=== PATIENT | male | born 1990 | race Caucasian/White ===

== ENCOUNTER 2019-03-24 08:04 | Day surgery (SDC) | payer OTHER ==
[~2019-03-24] VITALS: Ht 182.9 cm; Wt 97.5 kg
[2019-03-24] MEDS ORDERED: FLONASE ALLERG9.9 ML NAS (08:28)
--- NOTE | 2019-03-24 11:21 | NUR ---
03/24/19 [facility] Michelle Jones [facility]- PT ARRIVES TO PACU FROM ENDO ROOM ON 2 L VIA NC. VSS. PT LAYING IN BED WITH EYES CLOSED. EASILY AWAKENS TO VERBAL STIMULUS. PT ASKS QUESTIONS ABOUT SCOPE FINDINGS AND ANSWERS RN QUESTIONS APPRORIATELY. PT REPORTS SOME SORENESS IN RECTUM BUT TOLERABLE. DENIES NAUSEA. FALLS BACK ASLEEP EASILY.
--- NOTE | 2019-03-24 18:30 | OR ---
[facility] [address], [place] [address] Signed DATE OF OPERATION: 03/24/2019 SURGEON: Chula Mueller MD PREOPERATIVE DIAGNOSES: Lower abdominal pain, episodic rectal bleeding. POSTOPERATIVE DIAGNOSIS: Normal-appearing colon and ileum. PROCEDURE PERFORMED: Total colonoscopy to cecum with intubation of ileum and biopsies. ANESTHESIA: Intravenous sedation, fentanyl 100 mcg, Versed 6 mg. INDICATIONS: This 29-year-old white man is a patient of physician Abundio arevalo in [place], [place]. He has had worsening lower abdominal crampy type pain as well as associated episodic rectal bleeding. Hemoccult stool has been positive. He has had no weight loss, but has had diarrhea in addition to the abdominal pain. He has no family history of colon cancer or inflammatory bowel disease. He was admitted at this time to undergo colonoscopy to better characterize the problem. FINDINGS: The prep was excellent. Complete colonoscopy was undertaken to the cecum and intubation of the ileum was accomplished as well. Biopsies were taken throughout, though none of the areas look particularly worrisome for inflammation in any way. There were certainly no polyps or diverticular formation. I saw no fissure or significant hemorrhoidal disease today. DESCRIPTION OF PROCEDURE: The patient was brought to the endoscopy suite and placed in lateral decubitus position given intravenous sedation to the point of slurred speech and nystagmus. Digital rectal examination was normal. An Olympus video colonoscope was passed in the rectum and manipulated throughout the colon ultimately intubating the cecum. The ileocecal valve and appendiceal orifice were well visualized. With various maneuvers, ultimately the terminal ileum could be intubated. Atypical lymphoid appearance of the ileum was noted. Scope was passed at Electronically Signed By: CHULA MUELLER MD 03/24/19 1830 PATIENT NAME: MANISH HERNANDEZ OPERATIVE REPORT DATE OF : [birth year] REPORT #: [id number] PHYSICIAN: CHULA MUELLER MD PCP: EVELIN HARRIS PA-C REPORT IS CONFIDENTIAL AND NOT TO BE RELEASED WITHOUT AUTHORIZATION [facility] [address], [place] [address] Signed least 8 cm or so into the ileum. Biopsies were obtained there, though the mucosa looked normal. Scope was withdrawn. A biopsy was then taken of the cecum. Careful withdrawal of scope and examination throughout showed no sign of abnormality. Biopsies were taken in the sigmoid and rectum as well. Scope was removed and the patient was taken to recovery room in good condition. Of note, careful passage through the anal canal showed no evidence of fissure and no active hemorrhoidal disease. He was taken to recovery room in good condition. CONCLUDING DIAGNOSIS: He may well have problem of irritable bowel syndrome given his symptom constellation and lack of findings on colonoscopy. On the other hand, pathology report is pending and the possibility of microscopic colitis must be considered as well. For the time being, we will have him review and initiate a low FODMAP diet and we will see him back in 4 to 6 weeks and assess his pathology reports and progress. MD DEJON Palacio/SOLO /[id number] cc: THIAGO Crockett [facility] Copies: ~ Electronically Signed By: CHULA MUELLER MD 03/24/19 1830 PATIENT NAME: MANISH HERNANDEZ OPERATIVE REPORT DATE OF : [birth year] REPORT #: [id number] PHYSICIAN: CHULA MUELLER MD PCP: EVELIN HARRIS PA-C REPORT IS CONFIDENTIAL AND NOT TO BE RELEASED WITHOUT AUTHORIZATION
--- NOTE | 2019-03-27 17:31 | PATH ---
[facility] [place] [facility] [address], [place] [address] Signed SPECIMEN(S): A TERMINAL ILEUM SPECIMEN(S): B CECUM SPECIMEN(S): C SPLENIC FLEXURE SPECIMEN(S): D SIGMOID SPECIMEN(S): E RECTUM SPECIMEN SOURCE: A. TERMINAL ILEUM B. CECUM C. SPLENIC FLEXURE D. SIGMOID E. RECTUM CLINICAL HISTORY: Abdominal pain, bloody stool, diarrhea. Post op: Normal colon. MICROSCOPIC DESCRIPTION: A, C, D and E. Histologic sections of all submitted blocks are examined by light microscopy. These findings, together with the gross examination, support the pathologic diagnosis. B. Sections reveal a biopsy of colonic mucosa. The epithelial surface is intact and has retained mucus-secreting ability. The basement membrane is not thickened. Glands are simple and tubular and reach all the way to the muscularis mucosae. The lamina propria is not expanded and contains a few plasma cells, lymphocytes and infrequent eosinophils. No acute inflammatory cells, excess intraepithelial lymphocytes, crypt abscesses, areas of fibrosis, granulomas or pseudomembranes are seen. There is no evidence of malignancy or atypia. LILIAA:albert FINAL PATHOLOGIC DIAGNOSIS: A. Mucosa, terminal ileum, biopsy: - Small intestinal mucosa; no microscopic pathologic diagnosis. B. Mucosa, cecum, biopsy: - No microscopic pathologic diagnosis. C. Mucosa, splenic flexure of colon, biopsy: - No microscopic pathologic diagnosis. D. Mucosa, sigmoid colon, biopsy: - No microscopic pathologic diagnosis. E. Mucosa, rectum, biopsy: - No microscopic pathologic diagnosis. LILIAA:albert:C2NR PATIENT NAME: MANISH HERNANDEZ PATHOLOGY DATE OF : [birth year] REPORT #: [id number] PHYSICIAN: SHYANNE GIFFORD PCP: EVELIN HARRIS PA-C REPORT IS CONFIDENTIAL AND NOT TO BE RELEASED WITHOUT AUTHORIZATION [facility] [place] [facility] [address], [place] [address] Signed GROSS DESCRIPTION: Five specimens are received in five containers, labeled "LY." A. The specimen, labeled "LY, #1" and "terminal ileum" on the requisition, is received in formalin and consists of three soft kendall tissue fragments that vary from 0.1-0.3 cm and are submitted in toto in cassette (A1). B. The specimen, labeled "LY, #2" and "cecum" on the requisition, is received in formalin and consists of a 0.4 cm, soft kendall tissue fragment that is submitted in toto in cassette (B1). C. The specimen, labeled "LY, #3" and "splenic flexure" on the requisition, is received in formalin and consists of two soft kendall tissue fragments that measure 0.2 cm each and are submitted in toto in cassette (C1). D. The specimen, labeled "LY, #4" and "sigmoid" on the requisition, is received in formalin and consists of four soft kendall tissue fragments that vary from 0.2-0.3 cm and are submitted in toto in cassette (D1). E. The specimen, labeled "LY, #5" and "rectum" on the requisition, is received in formalin and consists of four soft pink to kendall tissue fragments that vary from 0.2-0.3 cm and are submitted in toto in cassette (E1). SS (under the direct supervision of a pathologist) The Gross Description was prepared using a voice recognition system. The report was reviewed for accuracy; however, sound-alike word errors, addition and/or deletions may occur. If there is any question about this report, please contact Client Services. PERFORMING LABORATORY: The technical component was performed by [facility] [address] (Suction Plate Roller Hand: Gley Olsen MD; CLIA# [id number]). Professional interpretation was performed by [facility], [address] [address] (CLIA# [id number]). Diagnostician: Eric Heredia MD Pathologist Electronically Signed 03/27/2019 Copies: PATIENT NAME: MANISH HERNANDEZ PATHOLOGY DATE OF : [birth year] REPORT #: [id number] PHYSICIAN: SHYANNE GIFFORD PCP: EVELIN HARRIS PA-C REPORT IS CONFIDENTIAL AND NOT TO BE RELEASED WITHOUT AUTHORIZATION [facility] [place] [facility] [address] [facility] [place], [place] [address] Signed ~ PATIENT NAME: MANISH HERNANDEZ PATHOLOGY DATE OF : [birth year] REPORT #: [id number] PHYSICIAN: SHYANNE GIFFORD PCP: EVELIN HARRIS PA-C REPORT IS CONFIDENTIAL AND NOT TO BE RELEASED WITHOUT AUTHORIZATION
== END 2019-03-24 12:10 | disposition home or self-care (01) ==
LOC: OPS 08:04 → DS 08:04 → OPS 09:45 → DS 10:30 → OPS 10:30
PROVIDERS: Surgery
PROC: 0DBB8ZX Excision of Ileum, Via Natural or Artificial Opening Endoscopic, Diagnostic (ICD-10-PCS; 2019-03-24)
PROC: 0DBP8ZX Excision of Rectum, Via Natural or Artificial Opening Endoscopic, Diagnostic (ICD-10-PCS; 2019-03-24)
PROC: 0DBN8ZX Excision of Sigmoid Colon, Via Natural or Artificial Opening Endoscopic, Diagnostic (ICD-10-PCS; 2019-03-24)
PROC: 0DBL8ZX Excision of Transverse Colon, Via Natural or Artificial Opening Endoscopic, Diagnostic (ICD-10-PCS; 2019-03-24)
PROC: 0DBH8ZX Excision of Cecum, Via Natural or Artificial Opening Endoscopic, Diagnostic (ICD-10-PCS; principal; 2019-03-24 09:45)
DX: K62.5 Hemorrhage of anus and rectum (principal); R19.7 Diarrhea, unspecified; R19.5 Other fecal abnormalities; R10.30 Lower abdominal pain, unspecified; K59.00 Constipation, unspecified; Z88.5 Allergy status to narcotic agent; Z88.1 Allergy status to other antibiotic agents
CPT/HCPCS: 99153; G0500; J2250; J3010

== ENCOUNTER 2022-12-16 16:47 | Emergency (ER) | payer OTHER ==
[~2022-12-16] VITALS: Ht 182.9 cm; Wt 102.5 kg
[~2022-12-16 16:47] MED LIST: FLONASE ALLERG9.9 ML NAS
--- OUTSIDE RECORDS SUMMARY | 2022-12-16 16:50 | XMS ---
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 Felicia has no Care Guidelines for this patient. [place] VISIT COUNT (12 MO.) 1 HUA Jon TOTAL 1 NOTE: Visits indicate total known visits. ED/C VISIT TRACKING (12 MO.) 12/16/2022 16:49 [facility] [place] TYPE: Emergency COMPLAINT: - DIZZINESS/HEADACHE INPATIENT VISIT TRACKING (12 MO.) No inpatient visits to display in this time frame [email or web address]
[2022-12-16] MEDS ORDERED: ZOLPIDEM TARTRA10 MG PO (17:28)
[2022-12-16] MEDS ORDERED: AMOXICILLIN500 MG PO (17:29)
[2022-12-16] MEDS ORDERED: ESCITALOPRAM OX20 MG PO (17:29)
[2022-12-16 17:57] LABS: BASOPHILS 0.7 % (0-2); EOSINOPHILS 1.7 % (0-6); HEMATOCRIT 46.2 % (35.0-50.0); HEMOGLOBIN 15.6 g/dL (12.0-18.0); MCH 30.9 (27-36); MCHC 33.8 g/dl (30-36); MCV 91.2 fl (81-99); MONOCYTES 8.3 % (0-12); NEUTROPHILS 57.3 % (39-80); PLATELET COUNT 382 K/uL (140-440); RBC 5.06 M/ul (4.3-5.7); RDW 13.1 (10.5-15.0)
[2022-12-16 18:12] LABS: ALBUMIN 4.6 g/dL (3.4-5.0); ALBUMIN/GLOBULIN RATIO 1.21 (1.1-2.4); ANION GAP 16.8 (7-21); BILIRUBIN, TOTAL 0.6 ng/dL (0.2-1.0); BUN/CREATININE RATIO 17.39 (6.0-28.6); CALCIUM 9.7 mg/dL (8.5-10.1); CREATININE, SERUM 1.15 mg/dL (0.70-1.30); POTASSIUM 3.8 mmol/L (3.5-5.1); PROTEIN, TOTAL 8.4 g/dL (6.4-8.2)
[2022-12-16] MEDS ORDERED: HYDROCODON-ACE1 EA11 PO (19:25)
[2022-12-16] MEDS ORDERED: ONDANSETRON ODT8 MG PO (19:26)
[2022-12-16] MEDS ORDERED: NASAL DECONGEST30 MG PO (19:36)
[2022-12-16 20:20] VITALS: BP 106/61
== END 2022-12-16 20:23 | disposition home or self-care (01) ==
LOC: ED 16:47
PROVIDERS: Emergency Medicine
DX: J32.8 Other chronic sinusitis (principal); Z88.1 Allergy status to other antibiotic agents; Z88.5 Allergy status to narcotic agent; Z79.899 Other long term (current) drug therapy
CPT/HCPCS: 36415; 70486; 80053; 85025; 96374; 96375; 99284-25; A9270; J1170; J1885; J2405; J7030